=== PATIENT | male | born 1955 | race Caucasian/White ===

== ENCOUNTER 2021-10-14 08:56 | Emergency (ER) | payer MEDICARE ==
[2021-10-14 09:49] LABS: #Basophils 0.1 10x3/uL (0.0-0.2); #Eosinphils 0.1 10x3/uL (0.0-0.5); #Monocytes 1.1 10x3/uL (0.0-1.1); #Neutrophils 5.3 10x3/uL (1.5-8.4); %Basophils 1.5 % (0.0-2.0); %Eosinophils 1.4 % (0.0-6.0); %Lymphocytes 16.1 % (18.0-47.0); %Monocytes 13.4 % (0.0-10.0); %Neutrophils 67.3 % (40.0-75.0); Hemoglobin 14.6 g/dL (13.5-17.5); Mean Corpuscular HGB CONC 34.5 g/dL (32.0-36.0); Mean Corpuscular Volume 98.6 fl (81.2-95.1); Mean Platelet Volume 8.6 fl (7.4-10.4); Platelet Count 217 10x3/uL (150-450); RBC Distribution Width 12.3 % (11.5-14.5); Red Blood Cell (RBC) Count 4.29 10x6/uL (4.32-5.72); White Blood Cell (WBC) Count 7.9 10x3/uL (3.5-10.5)
[2021-10-14] MEDS ORDERED: Ketorolac Tromethamine 30 MG/ML VIAL ONE (10:00)
[2021-10-14] MEDS ORDERED: Ventolin HFA Inhaler 60 PUFF INHALER ONE (10:01)
[2021-10-14 10:08] LABS: ALT (SGPT) 19 U/L (8-55); AST (SGOT) 22 U/L (5-34); Albumin 4.1 g/dL (3.4-4.8); Alkaline Phosphatase 85 U/L (40-110); Anion Gap 12 mmol/L (10-20); BUN (Urea Nitrogen) 12 mg/dL (8.4-25.7); Bilirubin, Total 0.8 mg/dL (0.2-1.2); Calc. Creatinine Clearance 0 mL/min (70-130); Calcium 8.8 mg/dL (7.8-10.44); Carbon Dioxide 29 mmol/L (23-31); Chloride 102 mmol/L (98-107); Globulin 2.5 g/dL (2.4-3.5); Glucose 104 mg/dL (80-115); Protein, Total 6.6 g/dL (5.8-8.1); Sodium 139 mmol/L (136-145)
[2021-10-14 18:36] LABS: SARS-CoV-2 PCR by NAA Not Detected (NotDetected)
== END 2021-10-14 11:30 | disposition home or self-care (01) ==
LOC: CSHERS 08:56
DX: J06.9 Acute upper respiratory infection, unspecified (principal); J20.9 Acute bronchitis, unspecified; Z20.822 Contact with and (suspected) exposure to COVID-19; I10 Essential (primary) hypertension; E03.9 Hypothyroidism, unspecified; K21.9 Gastro-esophageal reflux disease without esophagitis; Z79.899 Other long term (current) drug therapy
CPT/HCPCS: 71045; 80053; 84484; 85025; 93005; 94760; 96374; 99285; U0003; U0005; J1885

== ENCOUNTER 2022-01-21 10:24 | Outpatient (CLI) | payer MEDICARE | END 2022-01-21 10:25 | disposition home or self-care (01) | LOC: CSHULT 10:24 | PROVIDERS: ATTEND Internal Medicine | DX: N18.31 Chronic kidney disease, stage 3a (principal); N28.89 Other specified disorders of kidney and ureter | CPT/HCPCS: 76770 ==

== ENCOUNTER 2025-08-19 10:43 | Emergency (ER) | payer MEDICARE ==
[2025-08-19] MEDS ORDERED: HYDROcodone/Acetaminophen 5/325 mg Tablet ONE (13:05)
== END 2025-08-19 13:42 | disposition home or self-care (01) ==
LOC: CSHERS 10:43
DX: S82.61XA Displaced fracture of lateral malleolus of right fibula, initial encounter for closed fracture (principal); I10 Essential (primary) hypertension; W19.XXXA Unspecified fall, initial encounter
CPT/HCPCS: 70450; 72125